=== PATIENT | female | born 1935 | race Caucasian/White ===

== ENCOUNTER 2021-10-04 10:25 | Inpatient (IN) | payer MEDICARE ==
[~2021-10-04] VITALS: Ht 152.4 cm; Wt 45.6 kg
[~2021-10-04 10:25] MED LIST: ASCO-339 PO; ASPI-986 PO; DIVAL250 PO; FURO-151 MT; GABA100C PO; HALO2TAB2 PO; LEVO50TA PO; MULT-1146 MT; OLAN2.5T3 PO; PANT40SU PO; SULF1TAB47 PO; TEMA15CA5 PO
[2021-10-04] MEDS ORDERED: SODIUM CHLORIDE 0.9% 1000ML BAG (SEPSIS BOLUS) IV ONE (10:45)
[2021-10-04] MEDS ORDERED: PIPERACILLIN/TAZ 3.375G PREMIX 50 ML IV ONE (10:45)
[2021-10-04] MEDS ORDERED: VANCOMYCIN 1G PREMIX 200 ML IV ONE (10:45)
[2021-10-04 11:14] LABS: BASOPHILS % 0.3 % (0.0-2.0); EOSINOPHILS % 1.2 % (0.0-5.0); HEMOGLOBIN. 8.6 g/dL (12.0-16.0); LYMPHOCYTES % 14.3 % (20.0-50.0); MEAN CORPUSCULAR HEMOGLOBIN 29.9 pg (28.0-32.0); MEAN CORPUSCULAR VOLUME 90.3 fL (81.0-99.0); MEAN PLATELET VOLUME 7.3 fl (7.4-10.4); MONOCYTES % 10.4 % (2.0-8.0); NEUTROPHILS % 73.8 % (40.0-76.0); PLATELET 327 x1000/uL (130-400); RED BLOOD CELL COUNT 2.88 mill/uL (4.2-5.4); RED CELL DISTRIBUTION WIDTH 15.5 % (11.6-14.6)
[2021-10-04 11:24] LABS: CHLORIDE 118 mEq/L (98-107)
[2021-10-04 11:58] LABS: CLARITY URINE TURBID (CLEAR); COLOR URINE YELLOW (YELLOW); KETONES URINE NEGATIVE (NEGATIVE); LEUKOCYTE ESTERASE URINE NEGATIVE (NEGATIVE); NITRITE URINE NEGATIVE (NEGATIVE); OCCULT BLOOD URINE NEGATIVE (NEGATIVE); PROTEIN URINE NEGATIVE (NEGATIVE); SPECIFIC GRAVITY URINE 1.017 (1.005-1.030)
[2021-10-04] MEDS ORDERED: MORPHINE SULFATE 2 MG/ML CPJ (NOT FOR IM USE) IV PRN (12:30)
[2021-10-04] MEDS ORDERED: CLONIDINE 0.1MG TABLET PO PRN (12:30)
[2021-10-04] MEDS ORDERED: DIATR MEGLU/DIATRIZOATE SOLN 30ML PO SCH (12:30)
[2021-10-04] MEDS ORDERED: ONDANSETRON HCL 4MG/2ML INJ IV PRN (12:30)
[2021-10-04] MEDS ORDERED: ACETAMINOPHEN 650MG/20.3ML UDC GT PRN (12:30)
[2021-10-04] MEDS ORDERED: NALOXONE HCL 0.4MG/ML VIAL IV PRN (12:45)
[2021-10-04] MEDS: SODIUM CHLORIDE 0.45% 1,000 ML IV SCH ×2 (13:17→22:37)
[2021-10-04] MEDS ORDERED: DEXTROSE 50% WATER 50ML SYRINGE IV PRN (14:15)
[2021-10-04] MEDS: INSULIN LISPRO (MEDIUM DOSE) 100 UNITS/ML SUBCUT SCH ×3 (15:16→21:00)
[2021-10-04] MEDS: BLOOD SUGAR DIAGNOSTIC STRIP TEST SCH ×3 (15:16→21:00)
[2021-10-04] MEDS ORDERED: IOHEXOL-300 100 ML BOTTLE ONE (16:30)
[2021-10-04 20:27] LABS: CREATINE KINASE 97 IU/L (26-192)
[2021-10-04 20:45] VITALS: BP 115/41
[2021-10-04 21:30] VITALS: BP 115/41
[2021-10-04] MEDS ORDERED: PIPERACILLIN/TAZOBACTAM 3.375 G in DEXTROSE 5% WATER 50 ML IV SCH (22:00)
[2021-10-04] MEDS: PIPERACILLIN/TAZOBACTAM 3.375 G in DEXTROSE 5% WATER 50 ML IV SCH (22:36)
[2021-10-05] VITALS: BP 128/55
[2021-10-05 04:00] VITALS: BP 112/55
[2021-10-05] MEDS: PIPERACILLIN/TAZOBACTAM 3.375 G in DEXTROSE 5% WATER 50 ML IV SCH ×3 (05:05→21:59)
[2021-10-05] MEDS: VANCOMYCIN 500MG PREMIX 100 ML IV SCH (05:05)
[2021-10-05] MEDS: INSULIN LISPRO (MEDIUM DOSE) 100 UNITS/ML SUBCUT SCH ×4 (07:19→21:00)
[2021-10-05] MEDS: BLOOD SUGAR DIAGNOSTIC STRIP TEST SCH ×4 (07:27→21:53)
[2021-10-05 08:03] LABS: BASOPHILS % 0.4 % (0.0-2.0); EOSINOPHILS % 2.8 % (0.0-5.0); HEMATOCRIT. 26.5 % (36.0-48.0); HEMOGLOBIN. 8.9 g/dL (12.0-16.0); LYMPHOCYTES % 9.6 % (20.0-50.0); MEAN CORPUSCULAR HEMOGLOBIN 30.4 pg (28.0-32.0); MEAN CORPUSCULAR VOLUME 90.7 fL (81.0-99.0); MEAN PLATELET VOLUME 7.2 fl (7.4-10.4); MONOCYTES % 7.8 % (2.0-8.0); NEUTROPHILS % 79.4 % (40.0-76.0); PLATELET 314 x1000/uL (130-400); RED BLOOD CELL COUNT 2.92 mill/uL (4.2-5.4); RED CELL DISTRIBUTION WIDTH 15.6 % (11.6-14.6)
[2021-10-05 08:12] VITALS: BP 114/44
[2021-10-05 08:14] LABS: CHLORIDE 110 mEq/L (98-107)
[2021-10-05] MEDS ORDERED: VANCOMYCIN 750 MG in DEXT 5% WATER 250 ML IV SCH (09:00)
[2021-10-05] MEDS: SODIUM CHLORIDE 0.45% 1,000 ML IV SCH ×2 (10:31→21:57)
[2021-10-05 12:13] VITALS: BP 128/54
[2021-10-05 16:23] VITALS: BP 110/50
[2021-10-05 20:00] VITALS: BP 103/50
[2021-10-06] VITALS: BP 100/45
[2021-10-06] MEDS: VANCOMYCIN 500MG PREMIX 100 ML IV SCH ×3 (00:45→21:44)
[2021-10-06 04:00] VITALS: BP 132/61
[2021-10-06] MEDS: PIPERACILLIN/TAZOBACTAM 3.375 G in DEXTROSE 5% WATER 50 ML IV SCH ×3 (05:14→21:44)
[2021-10-06] MEDS: BLOOD SUGAR DIAGNOSTIC STRIP TEST SCH ×4 (06:21→21:44)
[2021-10-06] MEDS: LEVOTHYROXINE SODIUM 50MCG TABLET PO SCH (06:25)
[2021-10-06] MEDS: INSULIN LISPRO (MEDIUM DOSE) 100 UNITS/ML SUBCUT SCH ×4 (07:16→21:00)
[2021-10-06 08:00] VITALS: BP 128/58
[2021-10-06 08:06] LABS: BASOPHILS % 0.3 % (0.0-2.0); EOSINOPHILS % 2.1 % (0.0-5.0); HEMATOCRIT. 28.3 % (36.0-48.0); HEMOGLOBIN. 9.4 g/dL (12.0-16.0); LYMPHOCYTES % 10.5 % (20.0-50.0); MEAN CORPUSCULAR HEMOGLOBIN 30.2 pg (28.0-32.0); MEAN CORPUSCULAR VOLUME 90.7 fL (81.0-99.0); MONOCYTES % 8.8 % (2.0-8.0); NEUTROPHILS % 78.3 % (40.0-76.0); PLATELET 340 x1000/uL (130-400); RED BLOOD CELL COUNT 3.12 mill/uL (4.2-5.4); RED CELL DISTRIBUTION WIDTH 15.3 % (11.6-14.6)
[2021-10-06 08:14] LABS: CHLORIDE 108 mEq/L (98-107)
[2021-10-06 12:21] VITALS: BP 132/82
[2021-10-06] MEDS: SODIUM CHLORIDE 0.45% 1,000 ML IV SCH (15:26)
[2021-10-06 16:03] VITALS: BP 130/80
[2021-10-06 20:00] VITALS: BP 132/55
[2021-10-07] VITALS: BP 138/49
[2021-10-07 04:00] VITALS: BP 140/72
[2021-10-07 06:57] LABS: BASOPHILS % 0.4 % (0.0-2.0); EOSINOPHILS % 0.4 % (0.0-5.0); HEMATOCRIT. 26.2 % (36.0-48.0); HEMOGLOBIN. 8.9 g/dL (12.0-16.0); LYMPHOCYTES % 7.4 % (20.0-50.0); MEAN CORPUSCULAR HEMOGLOBIN 30.8 pg (28.0-32.0); MEAN CORPUSCULAR VOLUME 90.5 fL (81.0-99.0); MEAN PLATELET VOLUME 7.9 fl (7.4-10.4); MONOCYTES % 9.9 % (2.0-8.0); NEUTROPHILS % 81.9 % (40.0-76.0); PLATELET 307 x1000/uL (130-400); RED BLOOD CELL COUNT 2.89 mill/uL (4.2-5.4); RED CELL DISTRIBUTION WIDTH 15.6 % (11.6-14.6)
[2021-10-07] MEDS: PIPERACILLIN/TAZOBACTAM 3.375 G in DEXTROSE 5% WATER 50 ML IV SCH ×3 (06:57→21:30)
[2021-10-07] MEDS: LEVOTHYROXINE SODIUM 50MCG TABLET PO SCH (06:57)
[2021-10-07] MEDS: SODIUM CHLORIDE 0.45% 1,000 ML IV SCH (06:58)
[2021-10-07] MEDS: BLOOD SUGAR DIAGNOSTIC STRIP TEST SCH (06:58)
[2021-10-07 07:08] LABS: CHLORIDE 107 mEq/L (98-107)
[2021-10-07] MEDS: INSULIN LISPRO (MEDIUM DOSE) 100 UNITS/ML SUBCUT SCH (07:50)
[2021-10-07 08:06] VITALS: BP 129/47
[2021-10-07] MEDS: VANCOMYCIN 500MG PREMIX 100 ML IV SCH ×2 (09:16→21:30)
[2021-10-07] MEDS ORDERED: POTASSIUM CHLORIDE 20MEQ/PACKET PO NR (10:30)
[2021-10-07 12:03] VITALS: BP 118/54
[2021-10-07 16:20] VITALS: BP 133/61
[2021-10-07 20:00] VITALS: BP 125/54
[2021-10-08] VITALS: BP 122/50
[2021-10-08 04:00] VITALS: BP 119/49
[2021-10-08] MEDS: PIPERACILLIN/TAZOBACTAM 3.375 G in DEXTROSE 5% WATER 50 ML IV SCH ×3 (06:21→21:36)
[2021-10-08] MEDS: LEVOTHYROXINE SODIUM 50MCG TABLET PO SCH (06:21)
[2021-10-08 07:12] LABS: BASOPHILS % 0.5 % (0.0-2.0); EOSINOPHILS % 2.4 % (0.0-5.0); HEMOGLOBIN. 9.9 g/dL (12.0-16.0); LYMPHOCYTES % 12.7 % (20.0-50.0); MEAN CORPUSCULAR HEMOGLOBIN 30.5 pg (28.0-32.0); MEAN CORPUSCULAR VOLUME 89.9 fL (81.0-99.0); MEAN PLATELET VOLUME 7.9 fl (7.4-10.4); MONOCYTES % 11.5 % (2.0-8.0); NEUTROPHILS % 72.9 % (40.0-76.0); PLATELET 317 x1000/uL (130-400); RED BLOOD CELL COUNT 3.23 mill/uL (4.2-5.4); RED CELL DISTRIBUTION WIDTH 15.5 % (11.6-14.6)
[2021-10-08 07:21] LABS: CHLORIDE 107 mEq/L (98-107)
[2021-10-08 07:26] LABS: PHOSPHORUS 2.9 mg/dL (2.5-4.9)
[2021-10-08 08:05] VITALS: BP 108/45
[2021-10-08] MEDS: VANCOMYCIN 500MG PREMIX 100 ML IV SCH (09:53)
[2021-10-08 11:53] VITALS: BP 128/62
[2021-10-08 16:13] VITALS: BP 141/49
[2021-10-08 20:00] VITALS: BP 136/55
[2021-10-09] VITALS: BP 114/49
[2021-10-09] MEDS ORDERED: VANCOMYCIN 750 MG in DEXT 5% WATER 250 ML IV SCH ×2
[2021-10-09 03:59] VITALS: BP 129/58
[2021-10-09 06:03] LABS: BASOPHILS % 0.7 % (0.0-2.0); EOSINOPHILS % 1.6 % (0.0-5.0); HEMATOCRIT. 27.9 % (36.0-48.0); HEMOGLOBIN. 9.4 g/dL (12.0-16.0); LYMPHOCYTES % 14.5 % (20.0-50.0); MEAN CORPUSCULAR HEMOGLOBIN 30.4 pg (28.0-32.0); MEAN CORPUSCULAR VOLUME 90.4 fL (81.0-99.0); MEAN PLATELET VOLUME 7.9 fl (7.4-10.4); MONOCYTES % 14.4 % (2.0-8.0); NEUTROPHILS % 68.8 % (40.0-76.0); PLATELET 333 x1000/uL (130-400); RED BLOOD CELL COUNT 3.08 mill/uL (4.2-5.4); RED CELL DISTRIBUTION WIDTH 15.6 % (11.6-14.6)
[2021-10-09 06:23] LABS: CHLORIDE 108 mEq/L (98-107)
[2021-10-09] MEDS: PIPERACILLIN/TAZOBACTAM 3.375 G in DEXTROSE 5% WATER 50 ML IV SCH ×3 (07:04→21:59)
[2021-10-09] MEDS: LEVOTHYROXINE SODIUM 50MCG TABLET PO SCH (07:04)
[2021-10-09 08:00] VITALS: BP 137/58
[2021-10-09 12:00] VITALS: BP 118/57
[2021-10-09 16:00] VITALS: BP 134/53
[2021-10-09 20:00] VITALS: BP 136/64
[2021-10-10] VITALS: BP 129/56
[2021-10-10 04:00] VITALS: BP 125/58
[2021-10-10] MEDS: LEVOTHYROXINE SODIUM 50MCG TABLET PO SCH ×2 (06:30→08:23)
[2021-10-10 08:30] VITALS: BP 134/55
[2021-10-10 11:44] VITALS: BP 134/55
[2021-10-10 12:16] VITALS: BP 127/70
== END 2021-10-10 14:00 | DRG 871 ==
LOC: ER 10:48 → 6WST 13:12 → EDBEDREQSVC 13:13 → EDBEDREQ 13:13 → EDBEDREQTM 13:13 → ENRESERV 18:44
PROVIDERS: ADMIT Internal Medicine Nephrology; ATTEND Internal Medicine Nephrology
DX: A41.9 Sepsis, unspecified organism (principal); J18.9 Pneumonia, unspecified organism; E87.0 Hyperosmolality and hypernatremia; N39.0 Urinary tract infection, site not specified; D64.9 Anemia, unspecified; E86.0 Dehydration; F03.90 Unspecified dementia, unspecified severity, without behavioral disturbance, psychotic disturbance, mood disturbance, and anxiety; I11.0 Hypertensive heart disease with heart failure; K21.9 Gastro-esophageal reflux disease without esophagitis; Z20.822 Contact with and (suspected) exposure to COVID-19; S30.91XA Unspecified superficial injury of lower back and pelvis, initial encounter; X58.XXXA Exposure to other specified factors, initial encounter; I50.9 Heart failure, unspecified; F20.9 Schizophrenia, unspecified; E11.9 Type 2 diabetes mellitus without complications; Z79.82 Long term (current) use of aspirin; Z79.899 Other long term (current) drug therapy; Z93.1 Gastrostomy status; Y93.89 Activity, other specified; Y92.89 Other specified places as the place of occurrence of the external cause; Y99.8 Other external cause status
CPT/HCPCS: 36415; 71045; 74177; 80048; 80053; 80202; 81003; 82550; 82962; 83605; 83735; 83880; 84100; 84145; 84439; 84443; 84484; 85025; 87077; 87426; 93005; 93306; 93970; 99291; J2543; J3370; J7030; J7060; Q9967

== ENCOUNTER 2021-10-17 07:47 | Inpatient (IN) | payer MEDICARE ==
[2021-10-17] VITALS (14 sets, daily range): BP systolic 105–136; BP diastolic 51–73
[~2021-10-17] VITALS: Ht 154.9 cm; Wt 52.6 kg
[~2021-10-17 07:47] MED LIST changes: +ETOMIDATE 2MG/ML 10ML VIAL IV ONE; +SODIUM CHLORIDE 0.9% 10ML VIAL ONE; +SUCCINYLCHOLINE CHLORIDE 200MG/10ML IV ONE
[2021-10-17] MEDS ORDERED: PIPERACILLIN/TAZ 3.375G PREMIX 50 ML IV ONE (08:00)
[2021-10-17] MEDS ORDERED: VANCOMYCIN 1G PREMIX 200 ML IV ONE (08:00)
[2021-10-17] MEDS ORDERED: SODIUM CHLORIDE 0.9% 1,000 ML IV ONE (08:00)
[2021-10-17] MEDS ORDERED: NOREPINEPHRINE 8MG/250ML PMX 250 ML IV STA (08:12)
[2021-10-17 08:27] LABS: HEMATOCRIT. 29.1 % (36.0-48.0); HEMOGLOBIN. 9.3 g/dL (12.0-16.0); MEAN CORPUSCULAR VOLUME 93.6 fL (81.0-99.0); MEAN PLATELET VOLUME 8.8 fl (7.4-10.4); PLATELET 235 x1000/uL (130-400); RED BLOOD CELL COUNT 3.11 mill/uL (4.2-5.4); RED CELL DISTRIBUTION WIDTH 16.1 % (11.6-14.6)
[2021-10-17] MEDS ORDERED: PROPOFOL 10MG/ML 100ML 100 ML IV ONE (08:30)
[2021-10-17 08:35] LABS: CHLORIDE 121 mEq/L (98-107)
[2021-10-17 08:40] LABS: INR 1.3; PROTHROMBIN TIME 13.8 sec (9.6-11.0)
[2021-10-17 08:58] LABS: PLATELET ESTIMATE NORMAL
[2021-10-17] MEDS ORDERED: SODIUM CHLORIDE 0.9% 1000ML BAG (SEPSIS BOLUS) IV ONE (09:00)
[2021-10-17 09:10] LABS: CLARITY URINE CLEAR (CLEAR); COLOR URINE DARK YELLOW (YELLOW); KETONES URINE NEGATIVE (NEGATIVE); LEUKOCYTE ESTERASE URINE NEGATIVE (NEGATIVE); NITRITE URINE NEGATIVE (NEGATIVE); OCCULT BLOOD URINE NEGATIVE (NEGATIVE); PH URINE 6.5 (4.5-8.0); PROTEIN URINE 1+ (NEGATIVE); SPECIFIC GRAVITY URINE 1.022 (1.005-1.030)
[2021-10-17 11:23] LABS: BG BASE EXCESS 1.3 mmol/L (-2.0-2.0); BG CARBOXYHEMOGLOBIN 0.3 % (0.5-1.5); BG DEOXYHEMOGLOBIN 1.7 % (0.0-5.0); BG FRACTION INSPIRED OXYGEN 100; BG HCO3 ACT 25.3 mmol/L (22.0-26.0); BG METHEMOGLOBIN 0.2 % (0.0-1.5); BG OXYGEN SATURATION 98.3 % (92.0-98.5); BG OXYHEMOGLOBIN 97.8 % (94.0-97.0); BG PCO2 37.1 mmHg (35.0-45.0); BG PH 7.451 (7.350-7.450); BG PO2 140.1 mmHg (75.0-100.0); BG SAMPLE SITE RIGHT RADIAL; BG TOTAL HEMOGLOBIN 8.8 g/dL (12.0-18.0); BG VENT MODE VENT - AC
[2021-10-17] MEDS ORDERED: IPRATROPIUM/ALBUTEROL 0.5-3(2.5)MG/3ML NEB HHN PRN (11:45)
[2021-10-17] MEDS ORDERED: FENTANYL CITRATE/PF 2,500 MCG in SODIUM CHLORIDE 0.9% 200 ML IV PRN (11:45)
[2021-10-17] MEDS: IPRATROPIUM/ALBUTEROL 0.5-3(2.5)MG/3ML NEB HHN SCH ×3 (12:00→20:44)
[2021-10-17] MEDS: CEFEPIME 1,000 MG in DEXTROSE 5% WATER 50 ML IV SCH ×2 (13:04→23:03)
[2021-10-17] MEDS: ENOXAPARIN 30MG/0.3ML SYR SUBCUT SCH (14:44)
[2021-10-17] MEDS: PROPOFOL 10MG/ML 100ML 100 ML IV PRN ×2 (16:29→22:55)
[2021-10-17] MEDS: ACETYLCYSTEINE 100MG/ML 10% VIAL 4ML INH SCH (16:32)
[2021-10-17] MEDS: METRONIDAZOLE 500MG TABLET PO SCH ×2 (16:42→22:53)
[2021-10-17] MEDS ORDERED: FAMOTIDINE 20MG TABLET PO SCH (21:00)
[2021-10-17] MEDS ORDERED: ONDANSETRON HCL 4MG/2ML INJ IV PRN (22:30)
[2021-10-17] MEDS ORDERED: DIPHENHYDRAMINE 50MG/ML VIAL IV PRN (22:30)
[2021-10-17] MEDS: DEXTROSE 5% WATER 1,000 ML IV SCH (22:54)
[2021-10-18] VITALS (79 sets, daily range): BP systolic 84–130; BP diastolic 43–81
[2021-10-18] MEDS: IPRATROPIUM/ALBUTEROL 0.5-3(2.5)MG/3ML NEB HHN SCH ×5 (01:01→20:00)
[2021-10-18] MEDS: ACETYLCYSTEINE 100MG/ML 10% VIAL 4ML INH SCH ×2 (01:01→09:06)
[2021-10-18 05:46] LABS: HEMATOCRIT. 28.7 % (36.0-48.0); HEMOGLOBIN. 9.1 g/dL (12.0-16.0); MEAN CORPUSCULAR HEMOGLOBIN 29.7 pg (28.0-32.0); MEAN CORPUSCULAR VOLUME 93.9 fL (81.0-99.0); MEAN PLATELET VOLUME 9.9 fl (7.4-10.4); PLATELET 186 x1000/uL (130-400); RED BLOOD CELL COUNT 3.05 mill/uL (4.2-5.4); RED CELL DISTRIBUTION WIDTH 16.1 % (11.6-14.6)
[2021-10-18 06:01] LABS: CHLORIDE 117 mEq/L (98-107)
[2021-10-18] MEDS: METRONIDAZOLE 500MG TABLET PO SCH ×3 (06:31→21:25)
[2021-10-18] MEDS: BLOOD SUGAR DIAGNOSTIC STRIP TEST SCH ×4 (06:31→21:25)
[2021-10-18] MEDS: INSULIN LISPRO 100 UNITS/ML SUBCUT SCH ×4 (06:32→21:00)
[2021-10-18 06:55] LABS: PLATELET ESTIMATE NORMAL
[2021-10-18] MEDS ORDERED: POTASSIUM CHLORIDE 20MEQ/PACKET PO SCH (07:45)
[2021-10-18] MEDS: FAMOTIDINE 20MG/2ML VIAL IV SCH (08:29)
[2021-10-18] MEDS: CEFEPIME 1,000 MG in DEXTROSE 5% WATER 50 ML IV SCH ×2 (08:29→21:25)
[2021-10-18] MEDS: DEXTROSE 5% WATER 1,000 ML IV SCH ×2 (08:31→19:38)
[2021-10-18 08:43] LABS: BG BASE EXCESS -1.3 mmol/L (-2.0-2.0); BG CARBOXYHEMOGLOBIN 0.3 % (0.5-1.5); BG DEOXYHEMOGLOBIN 0.3 % (0.0-5.0); BG FRACTION INSPIRED OXYGEN 100; BG HCO3 ACT 21.1 mmol/L (22.0-26.0); BG METHEMOGLOBIN 0.1 % (0.0-1.5); BG OXYGEN SATURATION 99.7 % (92.0-98.5); BG OXYHEMOGLOBIN 99.3 % (94.0-97.0); BG PCO2 27.3 mmHg (35.0-45.0); BG PH 7.506 (7.350-7.450); BG PO2 400.2 mmHg (75.0-100.0); BG SAMPLE SITE RIGHT RADIAL; BG TOTAL HEMOGLOBIN 9.2 g/dL (12.0-18.0); BG VENT MODE VENT - AC
[2021-10-18] MEDS ORDERED: ENOXAPARIN 40MG/0.4ML SYR SUBCUT SCH (09:00)
[2021-10-18] MEDS ORDERED: PROPOFOL 10MG/ML 100ML 100 ML IV PRN (10:00)
[2021-10-18] MEDS ORDERED: POLYETHYLENE GLYCOL 3350 (17GM) 1 DOSE PACK PO NR (10:00)
[2021-10-18] MEDS: VANCOMYCIN 750MG PMX (XELLIA) 150 ML IV SCH (10:47)
[2021-10-18] MEDS: ENOXAPARIN 30MG/0.3ML SYR SUBCUT SCH (14:22)
[2021-10-18] MEDS ORDERED: FENTANYL 2500MCG/250ML PMX 250 ML IV PRN (15:45)
[2021-10-19] VITALS (70 sets, daily range): BP systolic 85–140; BP diastolic 42–81
[2021-10-19] MEDS: ACETYLCYSTEINE 100MG/ML 10% VIAL 4ML INH SCH ×4 (00:31→23:52)
[2021-10-19] MEDS: IPRATROPIUM/ALBUTEROL 0.5-3(2.5)MG/3ML NEB HHN SCH ×7 (00:32→23:52)
[2021-10-19] MEDS: ACETAMINOPHEN 650MG/20.3ML UDC GT PRN ×2 (02:49→13:59)
[2021-10-19 05:18] LABS: CHLORIDE 107 mEq/L (98-107)
[2021-10-19 05:25] LABS: PHOSPHORUS 0.8 mg/dL (2.5-4.9)
[2021-10-19] MEDS: DEXTROSE 5% WATER 1,000 ML IV SCH ×2 (05:32→21:34)
[2021-10-19] MEDS: METRONIDAZOLE 500MG TABLET PO SCH ×3 (05:33→21:27)
[2021-10-19] MEDS: INSULIN LISPRO 100 UNITS/ML SUBCUT SCH ×4 (05:33→21:00)
[2021-10-19] MEDS: BLOOD SUGAR DIAGNOSTIC STRIP TEST SCH ×4 (05:33→21:32)
[2021-10-19] MEDS ORDERED: DEXT 5% IV SCH (09:00)
[2021-10-19] MEDS ORDERED: POTASSIUM PHOS M BASIC D BASIC IV SCH (09:00)
[2021-10-19] MEDS ORDERED: WATER IV SCH (09:00)
[2021-10-19] MEDS: FAMOTIDINE 20MG/2ML VIAL IV SCH (09:19)
[2021-10-19] MEDS: VANCOMYCIN 750MG PMX (XELLIA) 150 ML IV SCH (09:20)
[2021-10-19 10:27] LABS: HEMOGLOBIN. 8.7 g/dL (12.0-16.0); MEAN CORPUSCULAR HEMOGLOBIN 29.9 pg (28.0-32.0); RED CELL DISTRIBUTION WIDTH 15.4 % (11.6-14.6)
[2021-10-19] MEDS: CEFEPIME 1,000 MG in DEXTROSE 5% WATER 50 ML IV SCH ×2 (10:30→21:25)
[2021-10-19 11:11] LABS: BG BASE EXCESS -1.8 mmol/L (-2.0-2.0); BG CARBOXYHEMOGLOBIN 0.3 % (0.5-1.5); BG FRACTION INSPIRED OXYGEN 35; BG HCO3 ACT 20.5 mmol/L (22.0-26.0); BG METHEMOGLOBIN 0.3 % (0.0-1.5); BG OXYHEMOGLOBIN 96.4 % (94.0-97.0); BG PCO2 25.8 mmHg (35.0-45.0); BG PH 7.517 (7.350-7.450); BG PO2 86.7 mmHg (75.0-100.0); BG SAMPLE SITE RIGHT RADIAL; BG TOTAL HEMOGLOBIN 8.4 g/dL (12.0-18.0); BG VENT MODE VENT - PRVC
[2021-10-19 11:37] LABS: PLATELET ESTIMATE NORMAL
[2021-10-19] MEDS: ENOXAPARIN 30MG/0.3ML SYR SUBCUT SCH (13:18)
[2021-10-19] MEDS: MORPHINE SULFATE 2 MG/ML CPJ (NOT FOR IM USE) IV PRN (17:54)
[2021-10-19] MEDS: LORAZEPAM 2MG/ML CPJ IV PRN (21:45)
[2021-10-20] VITALS (65 sets, daily range): BP systolic 87–144; BP diastolic 48–91
[2021-10-20] MEDS: MEROPENEM 1,000 MG in SODIUM CHLORIDE 0.9% 100 ML IV SCH ×3 (02:41→17:05)
[2021-10-20] MEDS: MORPHINE SULFATE 2 MG/ML CPJ (NOT FOR IM USE) IV PRN (03:43)
[2021-10-20] MEDS: IPRATROPIUM/ALBUTEROL 0.5-3(2.5)MG/3ML NEB HHN SCH ×5 (04:07→20:44)
[2021-10-20 04:49] LABS: HEMATOCRIT. 24.6 % (36.0-48.0); HEMOGLOBIN. 8.1 g/dL (12.0-16.0); MEAN CORPUSCULAR HEMOGLOBIN 29.8 pg (28.0-32.0); MEAN CORPUSCULAR VOLUME 90.2 fL (81.0-99.0); RED BLOOD CELL COUNT 2.73 mill/uL (4.2-5.4); RED CELL DISTRIBUTION WIDTH 15.5 % (11.6-14.6)
[2021-10-20 04:55] LABS: CHLORIDE 109 mEq/L (98-107)
[2021-10-20 05:01] LABS: PHOSPHORUS 1.2 mg/dL (2.5-4.9)
[2021-10-20] MEDS: METRONIDAZOLE 500MG TABLET PO SCH ×3 (06:20→22:06)
[2021-10-20] MEDS: BLOOD SUGAR DIAGNOSTIC STRIP TEST SCH ×4 (06:21→21:00)
[2021-10-20] MEDS: ACETAMINOPHEN 650MG/20.3ML UDC GT PRN ×2 (06:21→22:06)
[2021-10-20] MEDS: INSULIN LISPRO 100 UNITS/ML SUBCUT SCH ×4 (06:28→21:00)
[2021-10-20 07:45] LABS: PLATELET ESTIMATE DECREASED
[2021-10-20 08:51] LABS: BG BASE EXCESS -0.3 mmol/L (-2.0-2.0); BG CARBOXYHEMOGLOBIN 0.4 % (0.5-1.5); BG DEOXYHEMOGLOBIN 2.7 % (0.0-5.0); BG FRACTION INSPIRED OXYGEN 30; BG HCO3 ACT 22.7 mmol/L (22.0-26.0); BG METHEMOGLOBIN 0.3 % (0.0-1.5); BG OXYGEN SATURATION 97.3 % (92.0-98.5); BG OXYHEMOGLOBIN 96.6 % (94.0-97.0); BG PCO2 30.5 mmHg (35.0-45.0); BG PO2 85.6 mmHg (75.0-100.0); BG SAMPLE SITE RIGHT RADIAL; BG TOTAL HEMOGLOBIN 7.8 g/dL (12.0-18.0); BG VENT MODE VENT - AC
[2021-10-20] MEDS: FAMOTIDINE 20MG/2ML VIAL IV SCH (09:02)
[2021-10-20] MEDS: ACETYLCYSTEINE 100MG/ML 10% VIAL 4ML INH SCH ×2 (09:32→16:20)
[2021-10-20] MEDS: VANCOMYCIN 750MG PMX (XELLIA) 150 ML IV SCH (09:47)
[2021-10-20] MEDS ORDERED: NALOXONE HCL 0.4MG/ML VIAL IV PRN (11:15)
[2021-10-20] MEDS ORDERED: POTASSIUM PHOS,M-BASIC-D-BASIC 20 MMOL in DEXT 5% WATER 243.3333 ML IV NR (13:00)
[2021-10-20] MEDS: ENOXAPARIN 30MG/0.3ML SYR SUBCUT SCH (13:38)
[2021-10-21] VITALS (51 sets, daily range): BP systolic 96–164; BP diastolic 47–95
[2021-10-21] MEDS: MEROPENEM 1,000 MG in SODIUM CHLORIDE 0.9% 100 ML IV SCH ×2 (00:11→08:39)
[2021-10-21] MEDS: ACETYLCYSTEINE 100MG/ML 10% VIAL 4ML INH SCH ×3 (00:30→16:39)
[2021-10-21] MEDS: IPRATROPIUM/ALBUTEROL 0.5-3(2.5)MG/3ML NEB HHN SCH ×6 (00:30→21:46)
[2021-10-21] MEDS: BLOOD SUGAR DIAGNOSTIC STRIP TEST SCH ×4 (05:54→23:35)
[2021-10-21] MEDS: INSULIN LISPRO 100 UNITS/ML SUBCUT SCH ×4 (05:55→23:36)
[2021-10-21] MEDS: METRONIDAZOLE 500MG TABLET PO SCH ×3 (05:57→21:47)
[2021-10-21] MEDS: VANCOMYCIN 750MG PMX (XELLIA) 150 ML IV SCH ×2 (05:57→23:35)
[2021-10-21 06:02] LABS: HEMATOCRIT. 24.3 % (36.0-48.0); MEAN CORPUSCULAR HEMOGLOBIN 29.6 pg (28.0-32.0); MEAN CORPUSCULAR VOLUME 90.2 fL (81.0-99.0); RED CELL DISTRIBUTION WIDTH 15.4 % (11.6-14.6)
[2021-10-21 06:21] LABS: CHLORIDE 109 mEq/L (98-107)
[2021-10-21 06:30] LABS: PHOSPHORUS 1.3 mg/dL (2.5-4.9)
[2021-10-21 06:36] LABS: CREATINE KINASE 127 IU/L (26-192)
[2021-10-21] MEDS ORDERED: POTASSIUM PHOS,M-BASIC-D-BASIC 20 MMOL in DEXT 5% WATER 243.3333 ML IV ONE (08:00)
[2021-10-21] MEDS ORDERED: LIDOCAINE HCL 1% 10 MG/ML 10ML VIAL ONE (08:26)
[2021-10-21] MEDS: FAMOTIDINE 20MG/2ML VIAL IV SCH (08:40)
[2021-10-21 10:50] LABS: BG CARBOXYHEMOGLOBIN 0.5 % (0.5-1.5); BG DEOXYHEMOGLOBIN 4.3 % (0.0-5.0); BG FRACTION INSPIRED OXYGEN 30; BG HCO3 ACT 22.8 mmol/L (22.0-26.0); BG OXYGEN SATURATION 95.7 % (92.0-98.5); BG OXYHEMOGLOBIN 95.2 % (94.0-97.0); BG PCO2 26.8 mmHg (35.0-45.0); BG PH 7.548 (7.350-7.450); BG PO2 71.8 mmHg (75.0-100.0); BG SAMPLE SITE RIGHT RADIAL; BG TOTAL HEMOGLOBIN 9.4 g/dL (12.0-18.0); BG VENT MODE PRVC
[2021-10-21] MEDS: ACETAMINOPHEN 650MG/20.3ML UDC GT PRN ×2 (11:52→23:51)
[2021-10-21] MEDS: MORPHINE SULFATE 2 MG/ML CPJ (NOT FOR IM USE) IV PRN ×2 (13:35→18:45)
[2021-10-21] MEDS: ENOXAPARIN 30MG/0.3ML SYR SUBCUT SCH (13:47)
[2021-10-21] MEDS ORDERED: DIATR MEGLU/DIATRIZOATE SOLN 30ML PO SCH (14:00)
[2021-10-21] MEDS: CEFEPIME 1,000 MG in DEXTROSE 5% WATER 50 ML IV SCH (16:43)
[2021-10-21] MEDS: LEVOFLOXACIN 500MG PREMIX 100 ML IV SCH (16:54)
[2021-10-21] MEDS: LORAZEPAM 2MG/ML CPJ IV PRN (21:56)
[2021-10-21] MEDS: DEXTROSE 50% WATER 50ML SYRINGE IV PRN (23:35)
[2021-10-22] VITALS (83 sets, daily range): BP systolic 96–167; BP diastolic 43–97
[2021-10-22] MEDS ORDERED: BLOOD SUGAR DIAGNOSTIC STRIP TEST SCH
[2021-10-22] MEDS: ACETYLCYSTEINE 100MG/ML 10% VIAL 4ML INH SCH ×3 (00:33→08:30)
[2021-10-22] MEDS: IPRATROPIUM/ALBUTEROL 0.5-3(2.5)MG/3ML NEB HHN SCH ×6 (00:34→20:00)
[2021-10-22] MEDS: CEFEPIME 1,000 MG in DEXTROSE 5% WATER 50 ML IV SCH ×2 (02:53→14:21)
[2021-10-22 05:07] LABS: HEMATOCRIT. 23.9 % (36.0-48.0); HEMOGLOBIN. 7.8 g/dL (12.0-16.0); MEAN CORPUSCULAR HEMOGLOBIN 29.5 pg (28.0-32.0); MEAN CORPUSCULAR VOLUME 90.5 fL (81.0-99.0); RED BLOOD CELL COUNT 2.64 mill/uL (4.2-5.4); RED CELL DISTRIBUTION WIDTH 15.3 % (11.6-14.6)
[2021-10-22 05:18] LABS: CHLORIDE 108 mEq/L (98-107)
[2021-10-22 05:26] LABS: PHOSPHORUS 1.6 mg/dL (2.5-4.9)
[2021-10-22] MEDS: BLOOD SUGAR DIAGNOSTIC STRIP TEST SCH ×3 (05:36→17:27)
[2021-10-22] MEDS: INSULIN LISPRO 100 UNITS/ML SUBCUT SCH ×3 (06:00→17:26)
[2021-10-22] MEDS: METRONIDAZOLE 500MG TABLET PO SCH ×3 (06:07→23:16)
[2021-10-22 06:52] LABS: PLATELET ESTIMATE NORMAL
[2021-10-22 07:38] LABS: BG BASE EXCESS 1.3 mmol/L (-2.0-2.0); BG DEOXYHEMOGLOBIN 1.6 % (0.0-5.0); BG HCO3 ACT 24.2 mmol/L (22.0-26.0); BG METHEMOGLOBIN 0.1 % (0.0-1.5); BG OXYGEN SATURATION 98.4 % (92.0-98.5); BG OXYHEMOGLOBIN 97.3 % (94.0-97.0); BG PCO2 31.2 mmHg (35.0-45.0); BG PH 7.508 (7.350-7.450); BG PO2 114.7 mmHg (75.0-100.0); BG SAMPLE SITE RIGHT RADIAL; BG TOTAL HEMOGLOBIN 7.8 g/dL (12.0-18.0); BG VENT MODE VENT- PRVC
[2021-10-22] MEDS: FAMOTIDINE 20MG/2ML VIAL IV SCH (08:14)
[2021-10-22] MEDS ORDERED: SODIUM PHOS,M-BASIC-D-BASIC 30 MM in DEXT 5% WATER 500 ML IV NR (09:30)
[2021-10-22] MEDS: ACETAMINOPHEN 650MG/20.3ML UDC GT PRN (11:31)
[2021-10-22] MEDS: ENOXAPARIN 30MG/0.3ML SYR SUBCUT SCH (13:17)
[2021-10-22] MEDS: LEVOFLOXACIN 500MG PREMIX 100 ML IV SCH (14:43)
[2021-10-22] MEDS: VANCOMYCIN 750MG PMX (XELLIA) 150 ML IV SCH (17:26)
[2021-10-22] MEDS: LORAZEPAM 2MG/ML CPJ IV PRN (23:35)
[2021-10-23] VITALS (82 sets, daily range): BP systolic 80–151; BP diastolic 32–92
[2021-10-23] MEDS: BLOOD SUGAR DIAGNOSTIC STRIP TEST SCH ×4 (00:38→17:55)
[2021-10-23] MEDS: CEFEPIME 1,000 MG in DEXTROSE 5% WATER 50 ML IV SCH ×2 (03:13→14:53)
[2021-10-23] MEDS: IPRATROPIUM/ALBUTEROL 0.5-3(2.5)MG/3ML NEB HHN SCH ×5 (04:08→20:46)
[2021-10-23 05:45] LABS: HEMATOCRIT. 24.3 % (36.0-48.0); HEMOGLOBIN. 8.1 g/dL (12.0-16.0); MEAN CORPUSCULAR HEMOGLOBIN 29.7 pg (28.0-32.0); MEAN CORPUSCULAR VOLUME 89.5 fL (81.0-99.0); RED BLOOD CELL COUNT 2.72 mill/uL (4.2-5.4); RED CELL DISTRIBUTION WIDTH 15.5 % (11.6-14.6)
[2021-10-23] MEDS: INSULIN LISPRO 100 UNITS/ML SUBCUT SCH ×4 (06:00→17:56)
[2021-10-23] MEDS: LORAZEPAM 2MG/ML CPJ IV PRN ×2 (06:08→14:34)
[2021-10-23] MEDS: METRONIDAZOLE 500MG TABLET PO SCH ×3 (06:08→21:45)
[2021-10-23 06:27] LABS: CHLORIDE 108 mEq/L (98-107)
[2021-10-23 06:32] LABS: PHOSPHORUS 1.9 mg/dL (2.5-4.9)
[2021-10-23 07:21] LABS: PLATELET ESTIMATE NORMAL
[2021-10-23] MEDS: POTASSIUM-SODIUM PHOSPHATE POWDER PACKET PO SCH ×2 (08:05→17:55)
[2021-10-23] MEDS: FAMOTIDINE 20MG/2ML VIAL IV SCH (08:05)
[2021-10-23 09:58] LABS: BG BASE EXCESS -1.6 mmol/L (-2.0-2.0); BG CARBOXYHEMOGLOBIN 0.6 % (0.5-1.5); BG DEOXYHEMOGLOBIN 4.2 % (0.0-5.0); BG FRACTION INSPIRED OXYGEN 35; BG HCO3 ACT 20.6 mmol/L (22.0-26.0); BG METHEMOGLOBIN 0.1 % (0.0-1.5); BG OXYGEN SATURATION 95.8 % (92.0-98.5); BG OXYHEMOGLOBIN 95.1 % (94.0-97.0); BG PH 7.534 (7.350-7.450); BG TOTAL HEMOGLOBIN 7.1 g/dL (12.0-18.0); BG VENT MODE PRVC
[2021-10-23] MEDS: MORPHINE SULFATE 2 MG/ML CPJ (NOT FOR IM USE) IV PRN (10:03)
[2021-10-23] MEDS ORDERED: VANCOMYCIN 750MG PMX (XELLIA) 150 ML IV SCH (14:00)
[2021-10-23] MEDS: MIDODRINE HCL 5MG TABLET GT SCH ×2 (14:34→21:45)
[2021-10-23] MEDS: ENOXAPARIN 30MG/0.3ML SYR SUBCUT SCH (14:53)
[2021-10-23] MEDS: LEVOFLOXACIN 500MG PREMIX 100 ML IV SCH (16:14)
[2021-10-23] MEDS: ACETAMINOPHEN 650MG/20.3ML UDC GT PRN (21:50)
[2021-10-23] MEDS ORDERED: PHENYLEPHRINE 50 MG in DEXT 5% WATER 245 ML IV PRN (23:30)
[2021-10-24] VITALS (62 sets, daily range): BP systolic 87–127; BP diastolic 30–92
[2021-10-24] MEDS: BLOOD SUGAR DIAGNOSTIC STRIP TEST SCH ×4 (00:18→17:23)
[2021-10-24] MEDS: IPRATROPIUM/ALBUTEROL 0.5-3(2.5)MG/3ML NEB HHN SCH ×5 (00:37→20:42)
[2021-10-24] MEDS: CEFEPIME 1,000 MG in DEXTROSE 5% WATER 50 ML IV SCH ×2 (02:08→15:49)
[2021-10-24] MEDS: METRONIDAZOLE 500MG TABLET PO SCH ×3 (05:07→21:22)
[2021-10-24] MEDS: MIDODRINE HCL 5MG TABLET GT SCH ×3 (05:08→21:22)
[2021-10-24] MEDS: INSULIN LISPRO 100 UNITS/ML SUBCUT SCH ×4 (05:10→17:23)
[2021-10-24] MEDS ORDERED: VANCOMYCIN 750MG PMX (XELLIA) 150 ML IV SCH (06:00)
[2021-10-24 06:37] LABS: MEAN CORPUSCULAR HEMOGLOBIN 29.1 pg (28.0-32.0); MEAN CORPUSCULAR VOLUME 90.3 fL (81.0-99.0); RED BLOOD CELL COUNT 2.28 mill/uL (4.2-5.4); RED CELL DISTRIBUTION WIDTH 15.8 % (11.6-14.6)
[2021-10-24 06:46] LABS: HEMATOCRIT. 20.6 % (36.0-48.0); HEMOGLOBIN. 6.6 g/dL (12.0-16.0)
[2021-10-24 06:48] LABS: CHLORIDE 111 mEq/L (98-107)
[2021-10-24 08:07] LABS: BG BASE EXCESS 0.5 mmol/L (-2.0-2.0); BG CARBOXYHEMOGLOBIN 0.5 % (0.5-1.5); BG HCO3 ACT 23.4 mmol/L (22.0-26.0); BG OXYHEMOGLOBIN 95.5 % (94.0-97.0); BG PCO2 30.6 mmHg (35.0-45.0); BG PH 7.502 (7.350-7.450); BG PO2 80.9 mmHg (75.0-100.0); BG SAMPLE SITE RIGHT RADIAL; BG TOTAL HEMOGLOBIN 7.6 g/dL (12.0-18.0); BG VENT MODE VENT- PRVC
[2021-10-24] MEDS: POTASSIUM-SODIUM PHOSPHATE POWDER PACKET PO SCH ×2 (09:17→15:56)
[2021-10-24] MEDS: FAMOTIDINE 20MG/2ML VIAL IV SCH (09:17)
[2021-10-24 10:01] LABS: NUCLEATED RED BLOOD CELLS 1 /100 WBC; PLATELET ESTIMATE NORMAL
[2021-10-24] MEDS: LEVOFLOXACIN 500MG PREMIX 100 ML IV SCH (15:51)
[2021-10-24] MEDS: MORPHINE SULFATE 2 MG/ML CPJ (NOT FOR IM USE) IV PRN (16:32)
[2021-10-24] MEDS: ACETAMINOPHEN 650MG/20.3ML UDC GT PRN (16:32)
[2021-10-24 17:26] LABS: HEMATOCRIT 31.1 % (36.0-48.0); HEMOGLOBIN 10.1 g/dL (12.0-16.0)
[2021-10-24] MEDS: LORAZEPAM 2MG/ML CPJ IV PRN (21:21)
[2021-10-25] VITALS (92 sets, daily range): BP systolic 69–144; BP diastolic 35–91
[2021-10-25] MEDS: IPRATROPIUM/ALBUTEROL 0.5-3(2.5)MG/3ML NEB HHN SCH ×6 (00:19→20:43)
[2021-10-25] MEDS: LORAZEPAM 2MG/ML CPJ IV PRN ×2 (01:34→14:29)
[2021-10-25] MEDS: ACETAMINOPHEN 650MG/20.3ML UDC GT PRN (01:34)
[2021-10-25] MEDS: CEFEPIME 1,000 MG in DEXTROSE 5% WATER 50 ML IV SCH ×2 (04:03→16:26)
[2021-10-25] MEDS: MIDODRINE HCL 5MG TABLET GT SCH ×3 (05:37→22:07)
[2021-10-25] MEDS: METRONIDAZOLE 500MG TABLET PO SCH ×3 (05:37→22:06)
[2021-10-25] MEDS: BLOOD SUGAR DIAGNOSTIC STRIP TEST SCH ×5 (05:37→23:40)
[2021-10-25] MEDS: INSULIN LISPRO 100 UNITS/ML SUBCUT SCH ×5 (05:37→23:40)
[2021-10-25 05:48] LABS: HEMATOCRIT. 27.7 % (36.0-48.0); HEMOGLOBIN. 9.2 g/dL (12.0-16.0); MEAN CORPUSCULAR HEMOGLOBIN 29.5 pg (28.0-32.0); MEAN CORPUSCULAR VOLUME 88.7 fL (81.0-99.0); RED BLOOD CELL COUNT 3.12 mill/uL (4.2-5.4); RED CELL DISTRIBUTION WIDTH 15.5 % (11.6-14.6)
[2021-10-25 05:52] LABS: CHLORIDE 111 mEq/L (98-107)
[2021-10-25 07:53] LABS: PLATELET ESTIMATE NORMAL
[2021-10-25 08:41] LABS: BG BASE EXCESS -5.4 mmol/L (-2.0-2.0); BG CARBOXYHEMOGLOBIN 0.1 % (0.5-1.5); BG DEOXYHEMOGLOBIN 6.9 % (0.0-5.0); BG FRACTION INSPIRED OXYGEN 35; BG HCO3 ACT 17.3 mmol/L (22.0-26.0); BG METHEMOGLOBIN 0.3 % (0.0-1.5); BG OXYGEN SATURATION 93.1 % (92.0-98.5); BG OXYHEMOGLOBIN 92.7 % (94.0-97.0); BG PCO2 25.4 mmHg (35.0-45.0); BG PH 7.451 (7.350-7.450); BG PO2 63.3 mmHg (75.0-100.0); BG SAMPLE SITE RIGHT RADIAL; BG TOTAL HEMOGLOBIN 10.7 g/dL (12.0-18.0); BG VENT MODE PRVC
[2021-10-25] MEDS: POTASSIUM-SODIUM PHOSPHATE POWDER PACKET PO SCH ×2 (09:25→19:05)
[2021-10-25] MEDS: FAMOTIDINE 20MG/2ML VIAL IV SCH (09:25)
[2021-10-25] MEDS: METOCLOPRAMIDE HCL 10MG/2ML VIAL IV SCH ×3 (12:29→23:41)
[2021-10-25] MEDS: MORPHINE SULFATE 2 MG/ML CPJ (NOT FOR IM USE) IV PRN (13:29)
[2021-10-25] MEDS: LEVOFLOXACIN 500MG PREMIX 100 ML IV SCH (16:26)
[2021-10-25 18:49] LABS: CLARITY URINE CLEAR (CLEAR); COLOR URINE YELLOW (YELLOW); KETONES URINE NEGATIVE (NEGATIVE); LEUKOCYTE ESTERASE URINE 1+ (NEGATIVE); NITRITE URINE NEGATIVE (NEGATIVE); OCCULT BLOOD URINE NEGATIVE (NEGATIVE); PROTEIN URINE 1+ (NEGATIVE); SPECIFIC GRAVITY URINE 1.016 (1.005-1.030); UROBILINOGEN URINE 0.2 E.U./dL (0.2-1.0)
[2021-10-26] VITALS (86 sets, daily range): BP systolic 76–154; BP diastolic 31–76
[2021-10-26] MEDS: IPRATROPIUM/ALBUTEROL 0.5-3(2.5)MG/3ML NEB HHN SCH ×6 (00:11→20:58)
[2021-10-26] MEDS: MORPHINE SULFATE 2 MG/ML CPJ (NOT FOR IM USE) IV PRN ×3 (00:51→20:11)
[2021-10-26] MEDS: CEFEPIME 1,000 MG in DEXTROSE 5% WATER 50 ML IV SCH ×2 (02:27→15:59)
[2021-10-26] MEDS: ACETAMINOPHEN 650MG/20.3ML UDC GT PRN (04:34)
[2021-10-26 04:45] LABS: CHLORIDE 110 mEq/L (98-107)
[2021-10-26 04:52] LABS: PHOSPHORUS 1.5 mg/dL (2.5-4.9)
[2021-10-26] MEDS: INSULIN LISPRO 100 UNITS/ML SUBCUT SCH ×4 (05:25→23:22)
[2021-10-26] MEDS: BLOOD SUGAR DIAGNOSTIC STRIP TEST SCH ×4 (05:25→23:22)
[2021-10-26] MEDS: MIDODRINE HCL 5MG TABLET GT SCH ×3 (05:26→22:57)
[2021-10-26] MEDS: METRONIDAZOLE 500MG TABLET PO SCH ×3 (05:26→22:57)
[2021-10-26] MEDS: METOCLOPRAMIDE HCL 10MG/2ML VIAL IV SCH ×4 (05:26→23:23)
[2021-10-26 06:37] LABS: HEMATOCRIT. 25.7 % (36.0-48.0); HEMOGLOBIN. 8.5 g/dL (12.0-16.0); MEAN CORPUSCULAR HEMOGLOBIN 29.4 pg (28.0-32.0); MEAN CORPUSCULAR VOLUME 88.6 fL (81.0-99.0); RED CELL DISTRIBUTION WIDTH 15.2 % (11.6-14.6)
[2021-10-26 07:44] LABS: PLATELET ESTIMATE MARKEDLY DECREASED
[2021-10-26 07:48] LABS: MEAN PLATELET VOLUME 11.7 fl (7.4-10.4); PLATELET 6 x1000/uL (130-400)
[2021-10-26] MEDS ORDERED: IPRATROPIUM/ALBUTEROL 0.5-3(2.5)MG/3ML NEB ONE ×3 (08:11→15:52)
[2021-10-26 08:45] LABS: BG BASE EXCESS -4.8 mmol/L (-2.0-2.0); BG CARBOXYHEMOGLOBIN 0.8 % (0.5-1.5); BG DEOXYHEMOGLOBIN 5.8 % (0.0-5.0); BG HCO3 ACT 17.6 mmol/L (22.0-26.0); BG METHEMOGLOBIN 0.1 % (0.0-1.5); BG OXYGEN SATURATION 94.1 % (92.0-98.5); BG OXYHEMOGLOBIN 93.3 % (94.0-97.0); BG PCO2 24.8 mmHg (35.0-45.0); BG PH 7.469 (7.350-7.450); BG PO2 70.6 mmHg (75.0-100.0); BG SAMPLE SITE RIGHT RADIAL; BG TOTAL HEMOGLOBIN 10.6 g/dL (12.0-18.0); BG VENT MODE VENT- PRVC
[2021-10-26] MEDS: FAMOTIDINE 20MG/2ML VIAL IV SCH (09:24)
[2021-10-26] MEDS: POTASSIUM-SODIUM PHOSPHATE POWDER PACKET PO SCH ×2 (10:25→16:01)
[2021-10-26] MEDS: LORAZEPAM 2MG/ML CPJ IV PRN ×3 (12:25→21:24)
[2021-10-26] MEDS: DEXTROSE 50% WATER 50ML SYRINGE IV PRN ×2 (12:25→23:23)
[2021-10-26] MEDS: LEVOFLOXACIN 500MG PREMIX 100 ML IV SCH (15:59)
[2021-10-26] MEDS: DEXT 5%/0.45% NACL 1000ML 1,000 ML IV SCH (21:24)
[2021-10-27] VITALS (102 sets, daily range): BP systolic 63–136; BP diastolic 23–83
[2021-10-27] MEDS: IPRATROPIUM/ALBUTEROL 0.5-3(2.5)MG/3ML NEB HHN SCH ×6 (00:43→20:55)
[2021-10-27] MEDS: PHENYLEPHRINE 100 MG in DEXT 5% WATER 240 ML IV PRN ×2 (01:25→18:49)
[2021-10-27] MEDS: LORAZEPAM 2MG/ML CPJ IV PRN ×3 (03:57→16:50)
[2021-10-27] MEDS: MORPHINE SULFATE 2 MG/ML CPJ (NOT FOR IM USE) IV PRN ×4 (03:57→21:26)
[2021-10-27 04:48] LABS: HEMATOCRIT. 28.7 % (36.0-48.0); HEMOGLOBIN. 9.5 g/dL (12.0-16.0); MEAN CORPUSCULAR HEMOGLOBIN 29.3 pg (28.0-32.0); MEAN CORPUSCULAR VOLUME 88.8 fL (81.0-99.0); MEAN PLATELET VOLUME 11.6 fl (7.4-10.4); RED BLOOD CELL COUNT 3.23 mill/uL (4.2-5.4); RED CELL DISTRIBUTION WIDTH 16.2 % (11.6-14.6)
[2021-10-27 04:57] LABS: PLATELET 6 x1000/uL (130-400)
[2021-10-27] MEDS: BLOOD SUGAR DIAGNOSTIC STRIP TEST SCH ×4 (05:25→23:38)
[2021-10-27] MEDS: INSULIN LISPRO 100 UNITS/ML SUBCUT SCH ×4 (05:25→23:38)
[2021-10-27] MEDS: METOCLOPRAMIDE HCL 10MG/2ML VIAL IV SCH ×4 (05:37→23:43)
[2021-10-27] MEDS: METRONIDAZOLE 500MG TABLET PO SCH ×2 (05:37→13:29)
[2021-10-27] MEDS: MIDODRINE HCL 5MG TABLET GT SCH ×3 (05:37→21:03)
[2021-10-27 06:03] LABS: PLATELET ESTIMATE MARKEDLY DECREASED
[2021-10-27 07:28] LABS: BG BASE EXCESS -10.8 mmol/L (-2.0-2.0); BG CARBOXYHEMOGLOBIN 1.2 % (0.5-1.5); BG DEOXYHEMOGLOBIN 9.8 % (0.0-5.0); BG HCO3 ACT 13.6 mmol/L (22.0-26.0); BG METHEMOGLOBIN 0.2 % (0.0-1.5); BG OXYGEN SATURATION 90.1 % (92.0-98.5); BG OXYHEMOGLOBIN 88.8 % (94.0-97.0); BG PCO2 25.9 mmHg (35.0-45.0); BG PH 7.337 (7.350-7.450); BG SAMPLE SITE RIGHT RADIAL; BG TOTAL HEMOGLOBIN 10.9 g/dL (12.0-18.0); BG VENT MODE VENT- PRVC
[2021-10-27] MEDS: POTASSIUM-SODIUM PHOSPHATE POWDER PACKET PO SCH (08:06)
[2021-10-27] MEDS: FAMOTIDINE 20MG/2ML VIAL IV SCH (08:06)
[2021-10-27] MEDS: DEXT 5%/0.45% NACL 1000ML 1,000 ML IV SCH (10:08)
[2021-10-27] MEDS: CITRIC ACID/SODIUM CITRATE SOLN 30ML UDC PO SCH ×2 (13:29→21:02)
[2021-10-27] MEDS ORDERED: LEVOFLOXACIN 500MG PREMIX 100 ML IV SCH (16:00)
[2021-10-27] MEDS: COLISTIMETHATE SODIUM 150MG/VIAL INH SCH (20:55)
[2021-10-28] VITALS (42 sets, daily range): BP systolic 25–108; BP diastolic 16–62
[2021-10-28] MEDS: IPRATROPIUM/ALBUTEROL 0.5-3(2.5)MG/3ML NEB HHN SCH ×3 (01:11→12:52)
[2021-10-28] MEDS: DEXT 5%/0.45% NACL 1000ML 1,000 ML IV SCH (02:05)
[2021-10-28] MEDS ORDERED: SODIUM BICARBONATE 8.4% 1 MEQ/ML 50ML SYR IV NR (04:30)
[2021-10-28] MEDS ORDERED: NOREPINEPHRINE 32 MG in DEXT 5% WATER 218 ML IV PRN (04:30)
[2021-10-28 04:50] LABS: HEMATOCRIT. 27.8 % (36.0-48.0); HEMOGLOBIN. 8.5 g/dL (12.0-16.0); MEAN CORPUSCULAR HEMOGLOBIN 29.7 pg (28.0-32.0); MEAN CORPUSCULAR VOLUME 97.6 fL (81.0-99.0); MEAN PLATELET VOLUME 10.1 fl (7.4-10.4); RED BLOOD CELL COUNT 2.85 mill/uL (4.2-5.4); RED CELL DISTRIBUTION WIDTH 18.1 % (11.6-14.6)
[2021-10-28] MEDS: VASOPRESSIN 20 UNIT in SODIUM CHLORIDE 0.9% 99 ML IV PRN ×2 (04:58→12:39)
[2021-10-28 05:05] LABS: PLATELET 12 x1000/uL (130-400)
[2021-10-28] MEDS: CITRIC ACID/SODIUM CITRATE SOLN 30ML UDC PO SCH ×2 (05:07→13:23)
[2021-10-28] MEDS: MIDODRINE HCL 5MG TABLET GT SCH ×2 (05:07→13:23)
[2021-10-28] MEDS: PHENYLEPHRINE 100 MG in DEXT 5% WATER 240 ML IV PRN (05:10)
[2021-10-28] MEDS: METOCLOPRAMIDE HCL 10MG/2ML VIAL IV SCH ×2 (05:10→11:32)
[2021-10-28] MEDS: DEXTROSE 50% WATER 50ML SYRINGE IV PRN ×2 (05:13→11:32)
[2021-10-28] MEDS: BLOOD SUGAR DIAGNOSTIC STRIP TEST SCH ×2 (05:17→11:28)
[2021-10-28] MEDS: INSULIN LISPRO 100 UNITS/ML SUBCUT SCH ×2 (05:17→11:47)
[2021-10-28 06:34] LABS: PHOSPHORUS 4.4 mg/dL (2.5-4.9)
[2021-10-28 08:59] LABS: BG BASE EXCESS -25.5 mmol/L (-2.0-2.0); BG CARBOXYHEMOGLOBIN 0.9 % (0.5-1.5); BG DEOXYHEMOGLOBIN 13.3 % (0.0-5.0); BG FRACTION INSPIRED OXYGEN 100; BG HCO3 ACT 6.4 mmol/L (22.0-26.0); BG METHEMOGLOBIN 0.2 % (0.0-1.5); BG OXYGEN SATURATION 86.6 % (92.0-98.5); BG OXYHEMOGLOBIN 85.6 % (94.0-97.0); BG PCO2 34.9 mmHg (35.0-45.0); BG PH 6.881 (7.350-7.450); BG PO2 76.9 mmHg (75.0-100.0); BG SAMPLE SITE RIGHT RADIAL; BG TOTAL HEMOGLOBIN 9.5 g/dL (12.0-18.0); BG VENT MODE PRVC
[2021-10-28] MEDS ORDERED: SODIUM BICARBONATE 8.4% 1 MEQ/ML 50ML SYR IV SCH (09:15)
[2021-10-28] MEDS: FAMOTIDINE 20MG/2ML VIAL IV SCH (09:53)
[2021-10-28] MEDS ORDERED: SODIUM BICARBONATE 100 MEQ in DEXTROSE 5% WATER 1,000 ML IV SCH (10:00)
[2021-10-28 10:20] LABS: RHEUMATOID FACTOR SCREEN POSITIVE (NEGATIVE)
[2021-10-28 10:34] LABS: PLATELET ESTIMATE MARKEDLY DECREASED
[2021-10-28] MEDS: COLISTIMETHATE SODIUM 150MG/VIAL INH SCH (12:52)
[2021-10-28] MEDS ORDERED: MEROPENEM 500 MG in SODIUM CHLORIDE 0.9% 50 ML IV SCH (16:00)
[2021-10-31 13:11] LABS: ANTI-MYELOPEROXIDASE AB < 9.0 U/mL (0.0-9.0); ANTI-PROTEINASE 3 ABS < 3.5 U/mL (0.0-3.5); ATYPICAL P-ANCA <1:20 titer (Neg:<1:20); CYTOPLASMIC C-ANCA <1:20 titer (Neg:<1:20); PERINUCLEAR P-ANCA <1:20 titer (Neg:<1:20)
== END 2021-10-28 17:30 | DRG 870 ==
LOC: ER 07:47 → MICUNO 12:06 → EDBEDREQTM 12:09 → EDBEDREQ 12:09 → ENRESERV 19:02
PROVIDERS: ADMIT Internal Medicine; ATTEND Internal Medicine
PROC: 5A1955Z Respiratory Ventilation, Greater than 96 Consecutive Hours (ICD-10-PCS; principal; 2021-10-17)
PROC: 06HY33Z Insertion of Infusion Device into Lower Vein, Percutaneous Approach (ICD-10-PCS; 2021-10-17)
PROC: B54BZZA Ultrasonography of Right Lower Extremity Veins, Guidance (ICD-10-PCS; 2021-10-17)
PROC: 0BH17EZ Insertion of Endotracheal Airway into Trachea, Via Natural or Artificial Opening (ICD-10-PCS; 2021-10-17)
PROC: 02HV33Z Insertion of Infusion Device into Superior Vena Cava, Percutaneous Approach (ICD-10-PCS; 2021-10-21)
PROC: B548ZZA Ultrasonography of Superior Vena Cava, Guidance (ICD-10-PCS; 2021-10-21)
PROC: 30233N1 Transfusion of Nonautologous Red Blood Cells into Peripheral Vein, Percutaneous Approach (ICD-10-PCS; 2021-10-21)
DX: A41.50 Gram-negative sepsis, unspecified (principal); E43 Unspecified severe protein-calorie malnutrition; G93.41 Metabolic encephalopathy; J69.0 Pneumonitis due to inhalation of food and vomit; R65.21 Severe sepsis with septic shock; J96.01 Acute respiratory failure with hypoxia; J15.6 Pneumonia due to other Gram-negative bacteria; E87.1 Hypo-osmolality and hyponatremia; E87.0 Hyperosmolality and hypernatremia; I50.22 Chronic systolic (congestive) heart failure; J44.0 Chronic obstructive pulmonary disease with (acute) lower respiratory infection; N17.9 Acute kidney failure, unspecified; E11.9 Type 2 diabetes mellitus without complications; E03.9 Hypothyroidism, unspecified; E87.6 Hypokalemia; D64.9 Anemia, unspecified; F20.9 Schizophrenia, unspecified; K21.9 Gastro-esophageal reflux disease without esophagitis; M19.90 Unspecified osteoarthritis, unspecified site; F03.90 Unspecified dementia, unspecified severity, without behavioral disturbance, psychotic disturbance, mood disturbance, and anxiety; R13.10 Dysphagia, unspecified; D69.59 Other secondary thrombocytopenia; E83.39 Other disorders of phosphorus metabolism; F31.9 Bipolar disorder, unspecified; Z66 Do not resuscitate; I11.0 Hypertensive heart disease with heart failure; Z20.822 Contact with and (suspected) exposure to COVID-19; E86.1 Hypovolemia; L89.156 Pressure-induced deep tissue damage of sacral region; Z79.82 Long term (current) use of aspirin; Z79.899 Other long term (current) drug therapy; Z86.73 Personal history of transient ischemic attack (TIA), and cerebral infarction without residual deficits; Z78.1 Physical restraint status; Z74.01 Bed confinement status; Z93.1 Gastrostomy status; Z68.29 Body mass index [BMI] 29.0-29.9, adult
CPT/HCPCS: 36415; 36600; 71045; 74018; 74176; 76937; 80048; 80053; 80202; 81003; 82040; 82270; 82375; 82550; 82805; 82962; 83520; 83605; 83615; 83735; 83880; 84100; 84134; 84145; 84478; 84484; 85014; 85018; 85025; 85651; 86038; 86140; 86256; 86430; 86635; 86850; 86900; 86920; 87070; 87077; 87186; 87426; 87449; 87804; 87899; 93005; 93923; 94003; 94640; 99291; A6261; C1725; C1769; J0330; J0692; J0770; J1200; J1650; J1815; J1956; J2060; J2185; J2270; J2370; J2543; J2704; J2765; J3010; J3370; J3490; J7030; J7050; J7060; J7070; J7608; P9016; P9034; Q9963; A4315